=== PATIENT | male | born 2000 | race Hispanic/Latino ===

== ENCOUNTER 2019-04-17 23:23 | Emergency (ER) | payer OTHER ==
[~2019-04-17] VITALS: Ht 175.3 cm; Wt 74.8 kg
[2019-04-17] MEDS ORDERED: SODIUM CHLORIDE 0.9% 1000ML 1,000 ML IV STA (23:45)
[2019-04-17] MEDS ORDERED: PANTOPRAZOLE 40 MG 10ML VIAL IV STA (23:45)
[2019-04-18 00:59] LABS: BILIRUBIN,URINE NEGATIVE (NEGATIVE); CLARITY,URINE CLEAR (CLEAR); COLOR,URINE YELLOW (YELLOW); KETONES,URINE NEGATIVE (NEGATIVE); LEUKOCYTE ESTERASE ,URINE NEGATIVE (NEGATIVE); NITRITE,URINE NEGATIVE (NEGATIVE); PROTEIN,URINE DIPSTICK NEGATIVE (NEGATIVE); URINE UROBILINOGEN 0.2 mg/dL (0.2 - 1)
[2019-04-18 01:18] LABS: ALANINE AMINOTRANSFERASE 25 IU/L (0-55); ALBUMIN 4.9 g/dL (3.5-5.0); ALBUMIN/GLOBULIN RATIO 1.3 (0.8-2.0); ALKALINE PHOSPHATASE 107 IU/L (40-150); BLOOD UREA NITROGEN 16 mg/dL (7-26); BUN/CREATININE RATIO 14 (6-25); CALCIUM 10.2 mg/dL (8.4-10.2); CARBON DIOXIDE 25 mmol/L (22-29); CREATININE, SERUM 1.14 mg/dL (0.72-1.25); EST GLOMERULAR FILTRATION RATE > 60 ML/MIN (60-); GLUCOSE 98 mg/dL (74-118); LIPASE 4 U/L (8-78)
[2019-04-18 01:29] LABS: BASOPHILS # (AUTO) 0.1 (0.0-0.1); BASOPHILS % 0.5 % (0.0-1.0); EOSINOPHILS % 0.2 % (0.0-6.0); HEMATOCRIT 49.6 % (38.2-49.6); HEMOGLOBIN 16.9 g/dL (14.0-18.0); LYMPHOCYTES % 18.4 % (18.0-39.1); MEAN CORPUSCULAR HEMOGLOBIN 29.5 pg (28-32); MEAN CORPUSCULAR HGB CONC 34.1 g/dL (31-35); MEAN CORPUSCULAR VOLUME 86.7 fL (81-99); MONOCYTES # (AUTO) 0.6 (0.2-0.8); MONOCYTES % 5.6 % (4.4-11.3); NEUTROPHILS # (AUTO) 8.2 (2.1-6.9); PLATELET COUNT 283 x10e3/uL (140-360); RED BLOOD COUNT 5.72 x10e6/uL (4.3-5.7); RED CELL DISTRIBUTION WIDTH 12.2 % (11.7-14.4)
[2019-04-18 01:29] LABS: BACTERIA,URINE FEW /HPF; EPITHELIAL CELLS,URINE FEW /LPF; RBC,URINE 0-5 /HPF (0-5); WBC,URINE (MAN) 0-5 /HPF (0-5)
[2019-04-18 01:33] LABS: ANION GAP 15.9 mmol/L (8-16); CHLORIDE 99 mmol/L (98-107); POTASSIUM 3.9 mmol/L (3.5-5.1); SODIUM 136 mmol/L (136-145)
[2019-04-18] MEDS ORDERED: IOPAMIDOL 370 MG/ML 200 ML INFUS..BTL INJ ONE (02:07)
[2019-04-18] MEDS ORDERED: SODIUM CHLORIDE 0.9% 50ML 50 ML ONE (02:08)
--- NOTE | 2019-04-18 02:24 | Diagnostic Imaging Report ---
EXAMINATION: CT of the abdomen and pelvis with contrast. TECHNIQUE: Spiral CT images of the abdomen and pelvis were performed from the lung bases to the lesser trochanters after the intravenous administration of 100 cc of Isovue 370 and the oral administration of 1. Coronal and sagittal reformatted images were obtained. COMPARISON: None. CLINICAL HISTORY:Fever, generalized abdominal pain, mid abdomen DISCUSSION: ABDOMEN/PELVIS: LOWER THORAX:Unremarkable. HEPATOBILIARY: No focal hepatic lesions. No intra or extrahepatic biliary ductal dilation. GALLBLADDER: No radio-opaque stones or sludge. No wall thickening. SPLEEN: No splenomegaly. PANCREAS: No focal masses or ductal dilatation. ADRENALS: No adrenal nodules. KIDNEYS/URETERS: No hydronephrosis, stones, or solid mass lesions. PELVIC ORGANS/BLADDER: Bladder and prostate are unremarkable. PERITONEUM/RETROPERITONEUM: No free air or fluid. LYMPH NODES: No intra-abdominal, retroperitoneal, pelvic or inguinal lymphadenopathy. VESSELS: The celiac trunk,superior and inferior mesenteric and bilateral renal arteries are patent The portal, superior mesenteric and splenic veins are patent. GI TRACT: No bowel dilation or evidence of obstruction. No pericolonic inflammatory changes. The appendix is not clearly identified, however, no periappendiceal or pericecal inflammatory changes or free fluid are noted. Stomach is unremarkable. BONES AND SOFT TISSUE: No aggressive lytic lesions.. No soft tissue abnormalities. IMPRESSION: 1. No acute abdominopelvic abnormalities. No bowel dilation or evidence of obstruction. 2. Although the appendix is not clearly identified, no periappendiceal or pericecal inflammatory changes or free fluid are identified. Low likelihood of appendicitis. Signed by: Dr. John Covington M.D. on 04/18/2019 2:21 AM
[2019-04-18 02:40] VITALS: BP 107/82
== END 2019-04-18 02:45 | disposition home or self-care (01) ==
LOC: ER 23:23
DX: R10.33 Periumbilical pain (principal); R11.0 Nausea
CPT/HCPCS: 36415; 74177; 80053; 81001; 83690; 85025; 99283; C9113; J7030; Q9967